=== PATIENT | female | born 1995 | race Two or more races ===

== ENCOUNTER 2017-12-04 12:29 | Emergency (ER) | END 2017-12-04 16:43 | disposition home or self-care (01) ==

== ENCOUNTER 2017-12-13 15:31 | Emergency (ER) | END 2017-12-13 17:57 | disposition home or self-care (01) ==

== ENCOUNTER 2018-04-25 23:49 | Emergency (ER) | payer BC ==
[~2018-04-25] VITALS: Ht 157.5 cm; Wt 79.0 kg
[~2018-04-25 23:49] MED LIST: DOCU-144 PO; FER325 PO; IBUP-1542 PO; MEDR10TA2 PO; MEDR2.5T PO
[2018-04-25 23:54] VITALS: Ht 157.5 cm; Wt 79.0 kg
[2018-04-26] MEDS ORDERED: IBUP-1561 PO (02:10)
[2018-04-26 02:25] VITALS: BP 117/63; PULSE 87; RESP 20
--- NOTE | 2018-04-26 04:10 | ERD ---
ER Documentation Chief Complaint Chief Complaint pelvic pain worsening x2-3h; vag spotting [id number]. p 5d course provera tx HPI Patient is a 22-year-old female with history of dysfunctional uterine bleeding who presents to the ED with complaints of mid suprapubic abdominal pain and vaginal spotting times for the past 2-3 hours. Patient was recently seen here about 2 weeks ago for complaints of vaginal bleeding. Ultrasound was unremarkable and CBC did show some anemia which is chronic for the patient. She was subsequently discharged home with a 5-day prescription for Provera. She states the bleeding stopped after 2 days of taking the medication but started to spot again today. She states this spotting is not as intense or as heavy as the bleeding she had prior. She also reports mid suprapubic abdominal pain, describes as intermittent and cramping rated as 5 out of 10 in intensity. She has been trying to conceive and is here with her . Denies any nausea, vomiting, fevers, chills, dysuria, frequency, urgency, flank pain or any other symptoms. Patient has an appointment to see an HR SYSTEMS ANALYST in 2 weeks. ROS All systems reviewed and are negative except as per history of present illness. Medications Home Meds Active Scripts Ibuprofen* (Motrin*) 400 Mg Tab, 400 MG PO Q6, #30 TAB Prov:RIDDHI MOLINA PA-C 04/26/18 Medroxyprogesterone Acetate* (Provera*) 10 Mg Tablet, 10 MG PO DAILY for 5 Days, TAB Prov:VANDANA CELIS PA-C 04/18/18 Ibuprofen* (Motrin*) 600 Mg Tab, 600 MG PO Q6, #30 TAB Prov:KIM MAGANA 12/13/17 Medroxyprogesterone Acetate* (Provera*) 2.5 Mg Tablet, 2.5 MG PO DAILY for 5 Days, TAB Prov:KIM MAGANA 12/13/17 Docusate Sodium* (Colace*) 100 Mg Capsule, 100 MG PO TID, #30 CAP Prov:NANO ZUÑIGA PA-C 12/04/17 Ferrous Sulfate* (Ferrous Sulfate*) 325 Mg Tabec, 325 MG PO BID, #30 TAB Prov:NANO ZUÑIGA PA-C 12/04/17 Medroxyprogesterone Acetate* (Provera*) 10 Mg Tablet, 10 MG PO DAILY for 5 Days, TAB Prov:NANO ZUÑIGA Kayleigh GREENWOOD 12/04/17 Allergies Allergies: Coded Allergies: No Known Allergy (Unverified , 04/25/18) PMhx/Soc History of Surgery: Yes (Appy) Anesthesia Reaction: No Hx Neurological Disorder: No Hx Respiratory Disorders: No Hx Cardiac Disorders: No Hx Psychiatric Problems: No Hx Miscellaneous Medical Probl: No Hx Alcohol Use: No Hx Substance Use: No Hx Tobacco Use: No Smoking Status: Never smoker Physical Exam Vitals Vital Signs Date Temp Pulse Resp B/P (MAP) Pulse Ox O2 O2 Flow FiO2 Time Delivery Rate 04/26/18 97.6 87 20 117/63 99 Room Air 02:25 (81) 04/25/18 99.0 100 20 129/60 100 23:54 (83) Physical Exam Const: No acute distress Head: Atraumatic Eyes: Normal Conjunctiva ENT: Normal External Ears, Nose and Mouth. Neck: Full range of motion. No meningismus. Resp: Clear to auscultation bilaterally Cardio: Regular rate and rhythm, no murmurs Abd: Soft, + mild TTP mid suprapubic region. No rebound or guarding, non distended. Normal bowel sounds Skin: No petechiae or rashes Back: No midline or flank tenderness Ext: No cyanosis, or edema Neur: Awake and alert Psych: Normal Mood and Affect Results 24 hrs Laboratory Tests Test 04/26/18 01:50 04/26/18 01:55 Urine Color YELLOW Urine Clarity CLEAR Urine pH 7.0 Urine Specific Ingram 1.016 Urine Ketones NEGATIVE mg/dL Urine Nitrite NEGATIVE mg/dL Urine Bilirubin NEGATIVE mg/dL Urine Urobilinogen NEGATIVE mg/dL Urine Leukocyte Esterase NEGATIVE Cathy/ul Urine Microscopic RBC 5 /HPF Urine Microscopic WBC 1 /HPF Urine Hemoglobin 1+ mg/dL Urine Glucose NEGATIVE mg/dL Urine Total Protein NEGATIVE mg/dl POC Beta HCG, Qualitative NEGATIVE Procedures/MDM EMERGENT LABS AND DIAGNOSTIC STUDIES: Lab Results above were reviewed and interpreted by me as below. Urine: 1+ RBC but without evidence of any gross hematuria or infection U preg: negative Nursing Notes Reviewed. Previous Medical Records requested via the Electronic Health Record. EMERGENCY DEPARTMENT COURSE / MEDICAL DECISION MAKING: Patient is a 22-year-old female with past medical history of dysfunctional uterine breathing who presents to the ED with complaints of vaginal spotting and mild suprapubic pain after a recent 5-day course of Provera. I did offer a repeat ultrasound of the pelvis today however patient and her deferred. Ultrasound done 2 weeks ago showed no evidence of uterine fibroids, ovarian torsion tubo-ovarian abscess or ectopic . UA done today was negative for any gross hematuria. U negative. Patient's vaginal bleeding is likely withdrawal bleeding from her recent Provera treatment. At this time there is no genitourinary, , or gynecologic emergency. Patient was advised to follow-up with her video poker floorman as scheduled in 2 weeks and follow up with their primary care physician in 2 days. She was given a prescription for Motrin for her pain. She is stable for outpatient management and follow-up. Return to the ED for any worsening symptoms. SPECIALIST FOLLOW UP RECOMMENDED: HR SYSTEMS ANALYST Patient has been advised to follow up with primary care in 1-2 days. Departure Diagnosis: Primary Impression: Dysfunctional uterine bleeding Condition: Stable Patient Instructions: Dysfunctional Uterine Bleeding Referrals: NO PRIMARY,CARE PHYSICIAN Additional Instructions: See your HR SYSTEMS ANALYST as scheduled and 2 weeks. Your bleeding is likely related to the medication that you just finished taking. Please take the ibuprofen as needed for pain. If pain starts getting worse, or bleeding worsens please return to the ED for further evaluation. RIDDHI MOLINA PA-C Apr 26, 2018 04:09
== END 2018-04-26 02:27 | disposition home or self-care (01) ==
LOC: FTE 23:49
DX: N93.8 Other specified abnormal uterine and vaginal bleeding (principal)
CPT/HCPCS: 81001; 81025; 99283